=== PATIENT | female | born 1960 | race Native Hawaiian/Other Pacific Islander ===

== ENCOUNTER 2019-04-23 12:10 | Inpatient (IN) | payer OTHER ==
[~2019-04-23] VITALS: Ht 157.5 cm; Wt 86.3 kg
[2019-04-23] VITALS (17 sets, daily range): BP systolic 132–169; BP diastolic 67–89; TEMP 97.5–98.1; Ht 157.5 cm; Wt 86.3 kg
[~2019-04-23 12:10] MED LIST: ANORO ELLIPTA 61 AER INH; ARIPIPRAZOLE10 MG PO; ASPIR-LOW81 MG PO; DULOXETINE HCL30 MG PO; FISH OIL1000 M1 PO; FURO40TA93 PO; HM MAGNESIUM400 MG PO; IPRAAER INH; K-TAB20 MEQ PO; LEVO0.1T6 PO; LIOTHYRONINE5 MCG PO; LISI20TA11 PO; OXCARBAZEPIN300 MG PO; RISP1TAB PO; RISPERDAL3 MG PO; TRAZ50TA36 PO
[2019-04-23] MEDS ORDERED: IBU800 MG PO (16:41)
[2019-04-23] MEDS ORDERED: MAGNSUS68 PO (16:42)
[2019-04-23] MEDS ORDERED: ALUMSUS6 PO (16:43)
[2019-04-23] MEDS ORDERED: TYLENOL325 MG (16:44)
[2019-04-24] VITALS (23 sets, daily range): BP systolic 129–165; BP diastolic 67–83; TEMP 97.9–99.5
[2019-04-24 04:59] LABS: PLATELET COUNT 283 K/uL (152-353)
[2019-04-24 05:04] LABS: POTASSIUM 4.3 mmol/L (3.6-5.2)
[2019-04-25] VITALS (19 sets, daily range): BP systolic 138–186; BP diastolic 73–93; TEMP 97.9–98.3
[2019-04-25 04:44] LABS: PLATELET COUNT 250 K/uL (152-353)
[2019-04-25 04:53] LABS: POTASSIUM 4.4 mmol/L (3.6-5.2)
[2019-04-26] VITALS (23 sets, daily range): BP systolic 135–181; BP diastolic 64–94; TEMP 97.8–98.5
[2019-04-26 08:29] LABS: PLATELET COUNT 266 K/uL (152-353)
[2019-04-26 08:39] LABS: POTASSIUM 3.9 mmol/L (3.6-5.2)
[2019-04-27] VITALS (14 sets, daily range): BP systolic 137–161; BP diastolic 67–88; TEMP 94–98.2
[2019-04-27 05:53] LABS: POTASSIUM 4.1 mmol/L (3.6-5.2)
[2019-04-27] MEDS ORDERED: ARTISOL20 OPTH (12:51)
[2019-04-27] MEDS ORDERED: IPRATROPIUM/ INH ×2 (12:52→12:53)
[2019-04-27] MEDS ORDERED: LEVAQUIN 500MG TAB PO (12:52)
[2019-04-27] MEDS ORDERED: MAGN400T4 PO (12:54)
[2019-04-27] MEDS ORDERED: METO-837 PO (12:54)
[2019-04-27] MEDS ORDERED: PRED10TA27 PO ×2 (12:55→12:56)
[2019-04-27] MEDS ORDERED: OXCARBAZEPIN300 MG PO (12:58)
[2019-04-27] MEDS ORDERED: DOCU100C10 PO (12:59)
[2019-04-27] MEDS ORDERED: PANTOPRAZOLE 40MG TA PO (16:16)
[2019-04-27] MEDS ORDERED: ONDA2INJ2 IV (16:19)
== END 2019-04-27 14:10 | disposition other institution (70) | DRG 193 ==
LOC: ICU 12:10
PROVIDERS: ADMIT Internal Medicine
DX: J18.8 Other pneumonia, unspecified organism (principal); J96.01 Acute respiratory failure with hypoxia; E87.1 Hypo-osmolality and hyponatremia; J44.0 Chronic obstructive pulmonary disease with (acute) lower respiratory infection; E03.8 Other specified hypothyroidism; E78.49 Other hyperlipidemia; G47.33 Obstructive sleep apnea (adult) (pediatric); F25.1 Schizoaffective disorder, depressive type; F10.26 Alcohol dependence with alcohol-induced persisting amnestic disorder; Z86.73 Personal history of transient ischemic attack (TIA), and cerebral infarction without residual deficits; I50.9 Heart failure, unspecified; Y95 Nosocomial condition; I11.0 Hypertensive heart disease with heart failure
CPT/HCPCS: 36415; 36600; 80048; 80053; 82805; 84300; 85027; 85379; 87070; 87205; 94640; 94664; 94760; J0360; J0456; J0696; J1650; J2930; J3490